=== PATIENT | male | born 1990 | race Caucasian/White ===

== ENCOUNTER → 2019-03-06 | Outpatient (CLI) | payer BC ==
--- NOTE | 2019-03-06 12:09 | MR ---
EXAMINATION TYPE: MR brain wo/w con DATE OF EXAM: 03/06/2019 COMPARISON: NONE HISTORY: Dizziness TECHNIQUE: Multiplanar, multisequence images of the brain and brainstem is performed without and with IV contras t, utilizing 9.5 mL intravenous Gadavist . FINDINGS: Diffusion weighted images demonstrate no evidence of a recent infarct or other diffusion ab normality. There is no extra-axial fluid collection or significant white matter signal abnormality. The ventricular system and cisternal spaces are normal in size and appearance. The brain volume is age appropriate. T2 Star weighted images show no suspicious intraparenchymal blood product. Calcifica tion or ossification along the falx is present. Midline structures demonstrate normal morphology. The craniocervical junction appears within normal limits. Post contrast images demonstrate no abnormal enhancement. The dural venous sinuses appear pa tent. The visualized sinuses are clear and the globes are intact. No suspicious opacification mastoid air cells is present bilaterally. IMPRESSION: No significant findings are seen to account for patient's symptoms of dizziness.
== END | disposition home or self-care (01) ==
LOC: RADMRIMAIN 10:54
PROVIDERS: ATTEND Physician Assistant
DX: R42 Dizziness and giddiness (principal)
CPT/HCPCS: 70553; A9585